=== PATIENT | male | born 1935 | race Caucasian/White ===

== ENCOUNTER 2017-12-30 11:08 | Emergency (ER) | payer OTHER ==
[~2017-12-30] VITALS: Ht 172.7 cm; Wt 81.7 kg
[~2017-12-30 11:08] MED LIST: AMLO5 PO; ASPI325EC PO; CALTRATE; CHOL10002 PO; ENOX80I SQ; HYDACE5325 PO; LEVSOD112 PO; LISI20 PO; MOM PO; MULVITMINF PO; POLY17UD PO; PSYL5.85P PO; ROSU10TA PO; SENN187 PO; WARF7.5 PO
== END 2017-12-30 13:11 | disposition home or self-care (01) ==
LOC: ER 11:08
DX: S76.311A Strain of muscle, fascia and tendon of the posterior muscle group at thigh level, right thigh, initial encounter (principal); S76.111A Strain of right quadriceps muscle, fascia and tendon, initial encounter; Z79.899 Other long term (current) drug therapy; Z79.01 Long term (current) use of anticoagulants; W01.0XXA Fall on same level from slipping, tripping and stumbling without subsequent striking against object, initial encounter; X50.1XXA Overexertion from prolonged static or awkward postures, initial encounter
CPT/HCPCS: 99283

== ENCOUNTER 2018-03-03 08:40 | Observation (INO) | payer OTHER ==
[~2018-03-03] VITALS: Ht 172.7 cm; Wt 83.2 kg
[2018-03-03 09:04] LABS: BASOPHILS ABSOLUTE AUTO 0.01 K/mm3 (0.00-0.23); BASOPHILS PERCENT AUTO 0 % (0-2); EOSINOPHILS PERCENT AUTO 0 % (0-6); Hematocrit 38.7 % (37.0-53.0); Hemoglobin 13.3 g/dL (13.5-17.5); IMMATURE GRAN ABSOLUTE AUTO 0.07 K/mm3 (0.00-0.10); IMMATURE GRAN PERCENT AUTO 1 % (0-1); LYMPHOCYTES ABSOLUTE AUTO 0.86 K/mm3 (0.84-5.20); LYMPHOCYTES PERCENT AUTO 7 % (21-46); MONOCYTES ABSOLUTE AUTO 0.44 K/mm3 (0.16-1.47); MONOCYTES PERCENT AUTO 3 % (4-13); Mean Corpuscular HGB 32.8 pg (26.0-34.0); Mean Corpuscular HGB Conc 34.4 g/dL (31.5-36.5); Mean Corpuscular Volume 96 fL (80-100); Mean Platelet Volume 10.1 fL (9.1-12.4); NEUTROPHILS ABSOLUTE AUTO 11.54 K/mm3 (1.96-9.15); NEUTROPHILS PERCENT AUTO 89 % (41-73); Platelet Count 244 K/mm3 (150-400); RDW Coefficient Variation 12.6 % (11.7-14.2); RDW Standard Deviation 44.3 fL (35.1-46.3); Red Blood Cell Count 4.05 M/mm3 (4.30-5.90); White Blood Cell Count 12.92 K/mm3 (4.00-11.30)
[2018-03-03 09:16] LABS: Alanine Aminotransfer (ALT/SGP 32 U/L (12-78); Albumin, Blood 3.5 g/dL (3.4-5.0); Alk Phos 131 U/L (50-136); Anion Gap 7 mmol/L (6-16); Aspartate Aminotrans (AST/SGOT 23 U/L (12-37); Bilirubin, Total 0.6 mg/dL (0.1-1.0); Blood Urea Nitrogen 15 mg/dL (8-24); Bun/Creatinine Ratio 19.4 (12.0-20.0); CO2, Blood 23 mmol/L (21-32); Calcium, Blood 8.5 mg/dL (8.5-10.1); Chloride, Blood 105 mmol/L (98-108); Creatinine, Blood 0.77 mg/dL (0.60-1.20); Globulin, Blood 3.5 g/dL (2.2-4.0); Glomerular Filtration Rate >60 (60-); Glucose, Blood 273 mg/dL (70-99); Potassium, Blood 4.5 mmol/L (3.5-5.5); Sodium, Blood 135 mmol/L (136-145)
[2018-03-03 09:21] LABS: International Normalized Ratio 1.05; Prothrombin Time Results 10.8 Sec (9.7-11.5)
[2018-03-03] MEDS ORDERED: ATOR40TA PO (14:19)
[2018-03-03] MEDS ORDERED: CARV3.125 PO (14:20)
[2018-03-03 14:55] LABS: Source, Urine Clean Catch
[2018-03-03 15:07] LABS: Bilirubin, Urine Neg (Neg); Blood, Urine 2+ (Neg); Glucose Qualitative, Urine 4+ (Neg); Ketones, Urine 1+ (Neg); Leukocyte Esterase, Urine Neg (Neg); Nitrite, Urine Neg (Neg); Protein, Urine 3+ (Neg); Urobilinogen, Urine NORM (Normal)
[2018-03-03 15:26] LABS: Appearance, Urine Clear (Clear); Color, Urine Yellow (P-Yellow)
[2018-03-03 15:31] LABS: Bacteria Few /hpf; Squamous Epithelial Cells Rare /hpf (Few)
[2018-03-04 05:04] LABS: Hematocrit 39.5 % (37.0-53.0); Hemoglobin 13.5 g/dL (13.5-17.5); Mean Corpuscular HGB 32.2 pg (26.0-34.0); Mean Corpuscular HGB Conc 34.2 g/dL (31.5-36.5); Mean Corpuscular Volume 94 fL (80-100); Mean Platelet Volume 10.2 fL (9.1-12.4); Platelet Count 283 K/mm3 (150-400); RDW Coefficient Variation 13.1 % (11.7-14.2); RDW Standard Deviation 44.7 fL (35.1-46.3); Red Blood Cell Count 4.19 M/mm3 (4.30-5.90); White Blood Cell Count 12.76 K/mm3 (4.00-11.30)
[2018-03-04 05:16] LABS: International Normalized Ratio 1.09; Prothrombin Time Results 11.2 Sec (9.7-11.5)
[2018-03-04 05:33] LABS: Anion Gap 7 mmol/L (6-16); Blood Urea Nitrogen 22 mg/dL (8-24); CHOL/HDL RATIO 3.4; CO2, Blood 24 mmol/L (21-32); Calcium, Blood 8.7 mg/dL (8.5-10.1); Chloride, Blood 106 mmol/L (98-108); Cholesterol 181 mg/dL (50-200); Creatinine, Blood 0.79 mg/dL (0.60-1.20); Glomerular Filtration Rate >60 (60-); Glucose, Blood 234 mg/dL (70-99); HDL Cholesterol 54 mg/dL (>39); Low Density Lipoprotein Chol 107 mg/dL (0-110); Potassium, Blood 4.6 mmol/L (3.5-5.5); Sodium, Blood 137 mmol/L (136-145); Triglycerides 102 mg/dL (30-160); Very Low Density Lipoprot Chol 20 mg/dL (6-32)
[2018-03-04] MEDS ORDERED: WARF7.5 (14:20)
[2018-03-04] MEDS ORDERED: ACET325 PO (14:22)
[2018-03-04] MEDS ORDERED: ASPI81CH PO (14:22)
[2018-03-04] MEDS ORDERED: ENOX100I SC (14:25)
[2018-03-04] MEDS ORDERED: HUMALOG KW200 UNIT/1 (14:29)
[2018-03-04] MEDS ORDERED: ONDA4ODT MM (14:30)
[2018-03-04] MEDS ORDERED: GABA100 PO (14:31)
[2018-03-04] MEDS ORDERED: METF500C PO (14:32)
== END 2018-03-04 16:09 | disposition home or self-care (01) ==
LOC: ER 08:40 → MEDS 08:41
PROVIDERS: Emergency Medicine; Internal Medicine
DX: G45.9 Transient cerebral ischemic attack, unspecified (principal); I25.10 Atherosclerotic heart disease of native coronary artery without angina pectoris; E78.5 Hyperlipidemia, unspecified; E03.9 Hypothyroidism, unspecified; R73.9 Hyperglycemia, unspecified; K59.00 Constipation, unspecified; E87.1 Hypo-osmolality and hyponatremia; D72.829 Elevated white blood cell count, unspecified; Z79.01 Long term (current) use of anticoagulants; Z95.1 Presence of aortocoronary bypass graft; Z95.2 Presence of prosthetic heart valve; Z85.038 Personal history of other malignant neoplasm of large intestine; Z85.818 Personal history of malignant neoplasm of other sites of lip, oral cavity, and pharynx; Z79.899 Other long term (current) drug therapy
CPT/HCPCS: 36415; 70450; 71045; 80048; 80053; 80061; 81001; 82947; 83036; 85025; 85027; 85610; 85730; 93306; 93880; 97161; 97165; 97530; 97535; 99285-25; G8978; G8979; G8980; G8987; G8988; G8989; J1650

== ENCOUNTER → 2018-05-25 | Outpatient (CLI) | payer OTHER ==
[~2018-05-25] MED LIST changes: +ACET325 PO; +ASPI81CH PO; +ATOR40TA PO; +CARV3.125 PO; +ENOX100I SC; +GABA100 PO; +HUMALOG KW200 UNIT/1; +METF500C PO; +ONDA4ODT MM; +WARF7.5
== END | disposition home or self-care (01) ==
LOC: LAB SHORT 14:31 → PLD 14:31
DX: M20.40 Other hammer toe(s) (acquired), unspecified foot (principal); L84 Corns and callosities; M79.673 Pain in unspecified foot; E11.49 Type 2 diabetes mellitus with other diabetic neurological complication; E11.621 Type 2 diabetes mellitus with foot ulcer; L97.509 Non-pressure chronic ulcer of other part of unspecified foot with unspecified severity
CPT/HCPCS: 88305; 88311

== ENCOUNTER 2018-08-28 09:36 | Day surgery (SDC) | payer OTHER ==
[~2018-08-28] VITALS: Ht 165.1 cm; Wt 78.9 kg
[~2018-08-28 09:36] MED LIST changes: +8HR ARTHRITIS650 M1 PO; +CENTRUM SILVER1 EAC4 PO; +CLOB.05TO TOP; +CLOBET30L TOP; +CYCL10 PO; +Caltrate Plus1 EACH PO; +HYDR1TAB94 PO; +LISI5 PO; +Metformin HCl500 MG PO; +NASADROPS15 ML PT; +Norvasc2.5 MG PO; +Synthroid112 MCG PO; +VITAMIN D32000 UNIT PO; +WARF5 PO; -WARF7.5
== END 2018-08-28 12:17 | disposition home or self-care (01) ==
LOC: ORSCSDS 09:36
PROVIDERS: Surgery
PROC: 0DJD8ZZ Inspection of Lower Intestinal Tract, Via Natural or Artificial Opening Endoscopic (ICD-10-PCS; principal; 2018-08-28 11:00)
DX: Z12.11 Encounter for screening for malignant neoplasm of colon (principal); Z85.038 Personal history of other malignant neoplasm of large intestine; Z80.0 Family history of malignant neoplasm of digestive organs; E78.5 Hyperlipidemia, unspecified; I10 Essential (primary) hypertension; E03.9 Hypothyroidism, unspecified; Z86.73 Personal history of transient ischemic attack (TIA), and cerebral infarction without residual deficits; E11.49 Type 2 diabetes mellitus with other diabetic neurological complication; I50.1 Left ventricular failure, unspecified; I25.10 Atherosclerotic heart disease of native coronary artery without angina pectoris; Z79.01 Long term (current) use of anticoagulants; Z79.84 Long term (current) use of oral hypoglycemic drugs; Z79.899 Other long term (current) drug therapy
CPT/HCPCS: J2250; J7120

== ENCOUNTER → 2020-04-26 | Outpatient (CLI) | payer OTHER | END | disposition home or self-care (01) | LOC: LAB SHORT 13:50 → LAB 13:50 | DX: L08.9 Local infection of the skin and subcutaneous tissue, unspecified (principal) | CPT/HCPCS: 87070; 87077; 87186; 87205 ==